=== PATIENT | female | born 1965 | race African-American/Black ===

== ENCOUNTER → 2016-11-01 09:04 | Outpatient (CLI) | payer BC ==
--- NOTE | ~2016-11-01 | EC ---
PATIENT:GEOVANNY MALONE DATE OF SERVICE: 11/01/16 SEX: F MEDICAL RECORD: [id number] DATE OF : 63 LOCATION:[facility] AGE OF PATIENT: 51 ADMISSION DATE: 11/01/16 REFERRING PHYSICIAN: INTERPRETING PHYSICIAN: EFFIE MENJIVAR MD ECHOCARDIOGRAM REPORT ECHO CHARGES 4 ECHO COMPLETE CLINICAL DIAGNOSIS: CHEST PAIN HX OF HTN ECHOCARDIOGRAPHIC MEASUREMENTS (adult normal given) AC root (d.<3.7cm) 2.9 cm LV Septum d (<1.2 cm> 1.6 cm Valve Excursion 1.4 cm LV Septum (systole) 1.9 cm Left Atria (s.<4.0cm> 2.8 cm LVPW d(<1.2cm) 1.6 cm RV (d.<2.3cm) 3.0 cm LVPW (sytole) 1.9 cm LV diastole(<5.6CM) 3.9 cm MV E-F(>70mm/sec) cm LV systole 2.3 cm LVOT Diameter 1.6 cm MV exc.(>10mm) 1.8 cm Est.ejection fraction (50-75%) % Pericardial Effusion N DOPPLER: LVIT cm/sec A 109 cm/sec E 99.0 cm/sec LA cm/sec RVSP mmHg LVOT 100 cm/sec AOP1/2T m/s Asc. Ao 131 cm/sec RVOT 70 cm/sec RA cm/sec PA 113 cm/sec AV Gradient Peak 6.86 mmHg AV Mean 3.17 mmHg AV Area 1.8 cm MV Gradient Peak 5.60 mmHg MV Mean 2.46 mmHg MV Area cm COMMENTS: Email Engineer: Lesvia BAUER Drywall Applicator: 4 Dr. Menjivar TAPE# PACS DATE OF SERVICE: 11/01/2016 PROCEDURE: Transthoracic echocardiogram. FINDINGS: 1. Left ventricle shown to have moderate concentric left ventricular hypertrophy. Inflow characteristics consistent with diastolic dysfunction. Ejection fraction 65% to 70%. No regional wall motion abnormalities. 2. The mitral valve has mild mitral valve thickening with trace mitral regurgitation. ECHOCARDIOGRAM REPORT [id number] GEOVANNY MALONE 3. The left atrium appears to be normal size, normal function. 4. The right ventricle is normal size with mild right ventricular hypertrophy. 5. The right atrium is normal size, normal function. 6. The aortic valve is a trileaflet structure, normal. 7. The tricuspid valve is normal size, normal structure. 8. The pulmonary valve has trace pulmonic insufficiency. 9. The pericardium has no pericardial effusion. IMPRESSION: The patient has mild hypertensive heart disease with preserved LV systolic function. TRANSINT:[id number] Voice Confirmation ID: [id number] DOCUMENT ID: [id number] EFFIE MENJIVAR MD CC: [id number] DICTATION DATE: 11/02/16 1506 AUTOMOTIVE TECHNOLOGY INSTRUCTOR: 11/02/161914 [facility] CLI 11/01/16 [address] [id number] [place] [address]
== END | disposition home or self-care (01) ==
LOC: D.ECHO 09:04
DX: R07.9 Chest pain, unspecified (principal); R00.2 Palpitations; R94.31 Abnormal electrocardiogram [ECG] [EKG]

== ENCOUNTER 2016-11-14 20:22 | Emergency (ER) | payer BC ==
[2016-11-14 20:56] LABS: APPEARANCE CLEAR (CLEAR); BACTERIA FEW /hpf (NONE SEEN); BILIRUBIN NEGATIVE (NEGATIVE); COLOR YELLOW (YELLOW); EPITHELIAL CELLS 0-5 /hpf (0-5); GLUCOSE 1000 mg/dL (NEGATIVE); KETONE NEGATIVE (NEGATIVE); NITRITE NEGATIVE (NEGATIVE); PROTEIN NEGATIVE (NEGATIVE); RED CELLS - URINE OCC /hpf (0-5); SPECIFIC GRAVITY 1.015 (1.005-1.020); UROBILINOGEN NORMAL (NORMAL)
[2016-11-14 21:22] LABS: BASOPHILS 0.1 % (0-2); EOSINOPHILS 0.5 % (0-7); HEMATOCRIT 45.5 % (36.0-48.0); HEMOGLOBIN 15.3 g/dL (12-16); IMMATURE GRANULOCYTES 0.4 % (0-5); LYMPHOCYTES 35.3 % (15-50); MCH 30.5 pg (26.0-34.0); MCHC 33.6 g/dL (31.0-37.0); MCV 90.6 fL (80.0-100.0); MEAN PLATELET VOLUME 10.7 fL (7.4-10.4); MONOCYTES 7.1 % (2-11); NEUTROPHILS 56.6 % (40-80); PLATELET COUNT 320 10x3/uL (130-400); RBC 5.02 10x6/uL (4.00-5.40); RDW 13.8 % (11.5-14.5); WBC 10.1 10x3/uL (4.8-10.8)
[2016-11-14 21:27] LABS: KETONE - SERUM NEGATIVE (NEGATIVE)
[2016-11-14 21:50] LABS: ALKALINE PHOSPHATASE 76 U/L (46-116); ALT (SGPT) 21 U/L (10-68); AMYLASE - SERUM 75 U/L (25-115); BILIRUBIN - TOTAL 0.43 mg/dL (0.2-1.3); CALCIUM 9.7 mg/dL (8.5-10.1); CARBON DIOXIDE 22.9 mmol/L (21.0-32.0); CHLORIDE - SERUM 89 mmol/L (98-107); CREATININE - SERUM 1.3 mg/dL (0.6-1.3); LIPASE 492 U/L (73-393); POTASSIUM - SERUM 4.8 mmol/L (3.5-5.1); PROTEIN - SERUM 7.8 g/dL (6.4-8.2); SODIUM 126 mmol/L (136-145); UREA NITROGEN 25 mg/dL (7-18); eGFR NON AFRICAN AMERICAN 46 mL/min (90-120)
[2016-11-14 21:52] LABS: CALC OSMOLALITY 279 mosm/kg (275-300); PRO BNP 6 pg/mL (0-125); TROPONIN-I < 0.017 ng/mL (0.000-0.060)
[2016-11-14 21:54] LABS: GLUCOSE 516 mg/dL (74-106)
== END 2016-11-14 23:39 | disposition home or self-care (01) ==
LOC: D.ER 20:22
PROVIDERS: Family Medicine
DX: E11.65 Type 2 diabetes mellitus with hyperglycemia (principal); Z79.4 Long term (current) use of insulin; J06.9 Acute upper respiratory infection, unspecified; I10 Essential (primary) hypertension

== ENCOUNTER 2018-01-26 10:22 | Emergency (ER) | payer BC ==
[~2018-01-26] VITALS: Ht 167.6 cm; Wt 76.4 kg
[2018-01-26 10:37] VITALS: BP 139/88; Ht 167.6 cm; Wt 76.4 kg
[2018-01-26] MEDS ORDERED: GLUCOPHAGE1000 MG PO (10:38)
[2018-01-26] MEDS ORDERED: ZOCOR20 MG PO (10:39)
[2018-01-26] MEDS ORDERED: GLIPIZIDE10 MG PO (10:39)
[2018-01-26] MEDS ORDERED: COZAAR25 MG PO (10:39)
[2018-01-26] MEDS ORDERED: NEURONTIN600 MG PO (10:40)
[2018-01-26] MEDS ORDERED: GABAPENTIN100 MG PO (10:40)
[2018-01-26] MEDS ORDERED: HYDROCODON-ACET15 ML PO (10:40)
== END 2018-01-26 13:10 | disposition home or self-care (01) ==
LOC: D.ER 10:22
DX: M54.2 Cervicalgia (principal); M54.5 Low back pain; M54.32 Sciatica, left side; M54.16 Radiculopathy, lumbar region; F17.200 Nicotine dependence, unspecified, uncomplicated

== ENCOUNTER 2020-06-22 12:05 | Emergency (ER) | payer OTHER ==
[~2020-06-22] VITALS: Ht 167.6 cm; Wt 65.5 kg
[~2020-06-22 12:05] MED LIST: COZAAR25 MG PO; GABAPENTIN100 MG PO; GLIPIZIDE10 MG PO; GLUCOPHAGE1000 MG PO; HYDROCODON-ACET15 ML PO; NEURONTIN600 MG PO; ZOCOR20 MG PO
[2020-06-22 12:09] VITALS: BP 104/83; Ht 167.6 cm; Wt 65.5 kg
[2020-06-22 12:38] LABS: BASOPHILS 0.3 % (0-2); EOSINOPHILS 1.4 % (0-7); HEMATOCRIT 40.9 % (36.0-48.0); IMMATURE GRANULOCYTES 0.3 % (0-5); LYMPHOCYTE ABS# 2.46 10x3/uL (1.18-3.74); LYMPHOCYTES 31.8 % (15-50); MCH 29.1 pg (26.0-34.0); MCHC 34.2 g/dL (31.0-37.0); MEAN PLATELET VOLUME 9.9 fL (7.4-10.4); MONOCYTES 10.1 % (2-11); NEUTROPHIL ABS# 4.34 10x3/uL (1.56-6.13); NEUTROPHILS 56.1 % (40-80); PLATELET COUNT 283 10x3/uL (130-400); RBC 4.81 10x6/uL (4.00-5.40); RDW 12.4 % (11.5-14.5); WBC 7.7 10x3/uL (4.8-10.8)
[2020-06-22 12:46] LABS: CALC OSMOLALITY 284 mosm/kg (275-300); CALCIUM 10.4 mg/dL (8.5-10.1); CARBON DIOXIDE 35.3 mmol/L (21.0-32.0); CHLORIDE - SERUM 89 mmol/L (98-107); CREATININE - SERUM 1.3 mg/dL (0.6-1.3); GLUCOSE 385 mg/dL (74-106); SODIUM 132 mmol/L (136-145); UREA NITROGEN 24 mg/dL (7-18); eGFR NON AFRICAN AMERICAN 45 mL/min (90-120)
[2020-06-22 12:54] LABS: ALBUMIN 3.7 g/dL (3.4-5.0); ALKALINE PHOSPHATASE 139 U/L (30-120); ALT (SGPT) 21 U/L (10-68); BILIRUBIN - TOTAL 0.25 mg/dL (0.2-1.3); PROTEIN - SERUM 7.8 g/dL (6.4-8.2); TROPONIN-I < 0.017 ng/mL (0.000-0.060)
== END 2020-06-22 16:00 | disposition home or self-care (01) ==
LOC: D.ER 12:05
PROVIDERS: Family Medicine
DX: E11.65 Type 2 diabetes mellitus with hyperglycemia (principal); E86.0 Dehydration; E87.6 Hypokalemia; E11.40 Type 2 diabetes mellitus with diabetic neuropathy, unspecified; I10 Essential (primary) hypertension; Z72.0 Tobacco use; Z79.84 Long term (current) use of oral hypoglycemic drugs; R53.1 Weakness